=== PATIENT | female | born 1945 | race Two or more races ===

== ENCOUNTER 2020-04-05 07:41 | Outpatient (CLI) | payer OTHER | END 2020-04-05 07:47 | disposition home or self-care (01) | LOC: NUCLEAR 07:41 | PROVIDERS: ATTEND Internal Medicine Cardiovascular Disease | DX: I25.110 Atherosclerotic heart disease of native coronary artery with unstable angina pectoris (principal) | CPT/HCPCS: 78452; 93017; A9500 ==